=== PATIENT | male | born 1990 | race Caucasian/White ===

== ENCOUNTER 2019-01-15 11:41 | Inpatient (IN) | payer OTHER, MEDICAID ==
[~2019-01-15] VITALS: Ht 185.4 cm; Wt 92.7 kg
[2019-01-15] MEDS ORDERED: QUET100T PO (14:35)
[2019-01-15] MEDS ORDERED: DIVA500T52 PO (14:35)
[2019-01-15] MEDS ORDERED: AMLO5TAB9 PO (17:06)
[2019-01-15] MEDS ORDERED: HALOPERIDOL 5 MG TABLET PO PRN (17:30)
[2019-01-15] MEDS ORDERED: ZOLPIDEM TARTRATE 10 MG TABLET PO PRN (17:30)
[2019-01-15] MEDS ORDERED: LORazepam 2 MG TABLET PO PRN (17:30)
[2019-01-15 18:10] VITALS: BP 146/85
[2019-01-15] MEDS ORDERED: INFLUENZA VIRUS VACCINE QVS 2019-20 (3YR+)/PF 60 MCG/0.5 ML SYRINGE IM ONE (18:30)
[2019-01-15] MEDS ORDERED: PNEUMOCOCCAL VACCINE POLYVALENT 0.5 ML VIAL [PPSV23] IM ONE (18:30)
[2019-01-15] MEDS: QUEtiapine FUMARATE 100 MG TABLET PO SCH (21:25)
[2019-01-15] MEDS: AmLODIPine BESYLATE 5 MG TABLET PO SCH (21:25)
[2019-01-15 22:53] VITALS: BP 122/71
[2019-01-16 05:49] VITALS: BP 126/63
[2019-01-16] MEDS ORDERED: MAG HYDROX/AL HYDROX/SIMETH ES 30 ML SUSPENSION UDCUP PO PRN (08:00)
[2019-01-16] MEDS ORDERED: CloNIDine HCL 0.1 MG TABLET PO PRN (08:00)
[2019-01-16] MEDS ORDERED: MAGNESIUM HYDROXIDE SUSPENSION 30 ML UDCUP PO PRN (08:00)
[2019-01-16] MEDS ORDERED: DOCUSATE SODIUM 100 MG CAPSULE PO PRN (08:00)
[2019-01-16] MEDS ORDERED: PETROLATUM,WHITE 28 GM JELLY TP PRN (08:00)
[2019-01-16] MEDS ORDERED: ONDANSETRON HCL 4 MG TABLET PO PRN (08:00)
[2019-01-16] MEDS ORDERED: ACETAMINOPHEN 325 MG TABLET PO PRN (08:00)
[2019-01-16] MEDS ORDERED: IBUPROFEN 600 MG TABLET PO PRN (08:00)
[2019-01-16] MEDS ORDERED: BACITRACIN 28.4 GM OINTMENT TP PRN (08:00)
[2019-01-16] MEDS ORDERED: OMEPRAZOLE 20 MG CAPSULE PO PRN (08:00)
[2019-01-16] MEDS ORDERED: LOPERAMIDE HCL 2 MG CAPSULE PO PRN (08:00)
[2019-01-16] MEDS ORDERED: BENZOCAINE/MENTHOL LOZENGE MM PRN (08:00)
[2019-01-16] MEDS ORDERED: ALBUTEROL SULFATE HFA 90 MCG/PUFF 8 GM INHALER IH PRN (08:00)
[2019-01-16 08:15] VITALS: BP 170/108
[2019-01-16] MEDS: DIVALPROEX SODIUM 500 MG ER TABLET PO SCH (08:19)
[2019-01-16 08:46] LABS: BASOPHILS % (AUTO) 0.5 % (0.0-2.0); EOSINOPHILS % (AUTO) 2.5 % (1.0-6.0); HEMOGLOBIN 9.6 g/dL (13.5-17.5); LYMPHOCYTES # (AUTO) 0.5 K/uL (1.0-4.8); LYMPHOCYTES % (AUTO) 14.9 % (22.0-44.0); MEAN CORPUSCULAR HEMOGLOBIN 30.1 pg (26.0-34.0); MEAN CORPUSCULAR HGB CONC 33.2 G/dL (31.0-37.0); MEAN CORPUSCULAR VOLUME 91 fL (80-100); MONOCYTES # (AUTO) 0.4 K/uL (0.1-1.0); MONOCYTES % (AUTO) 10.2 % (2.0-9.0); NEUTROPHILS # (AUTO) 2.5 K/uL (1.8-7.7); NEUTROPHILS % (AUTO) 71.9 % (40.0-70.0); PLATELET COUNT (AUTO) 125 K/uL (150-450); RED CELL DISTRIBUTION WIDTH 14.9 % (11.5-14.5)
[2019-01-16] MEDS: AmLODIPine BESYLATE 5 MG TABLET PO SCH (09:08)
[2019-01-16 09:25] LABS: HEMOGLOBIN A1C 5.5 % (4.5-6.2)
[2019-01-16 09:48] LABS: ALBUMIN 4.1 g/dL (3.4-5.0); BILIRUBIN,TOTAL 0.2 mg/dL (0.1-1.0); CALCIUM, TOTAL 9.3 mg/dL (8.8-10.5); CHOL/HDL RATIO 2.9 (4.2-7.3); CREATININE 4.46 mg/dL (0.60-1.30); POTASSIUM 4.5 mmol/L (3.5-5.1); THYROID STIMULATING HORMONE 1.79 uIU/mL (0.36-3.74); TOTAL PROTEIN, SERUM 7.6 g/dL (6.4-8.2)
[2019-01-16 18:02] VITALS: BP 143/84
[2019-01-16] MEDS: QUEtiapine FUMARATE 100 MG TABLET PO SCH (21:14)
[2019-01-17 01:06] VITALS: BP 119/62
[2019-01-17 08:09] VITALS: BP 123/90
[2019-01-17] MEDS: DIVALPROEX SODIUM 500 MG ER TABLET PO SCH (08:40)
[2019-01-17] MEDS: AmLODIPine BESYLATE 5 MG TABLET PO SCH ×2 (08:41→12:01)
[2019-01-17] MEDS: QUEtiapine FUMARATE 100 MG TABLET PO SCH (20:50)
[2019-01-18 04:29] VITALS: BP 135/100
[2019-01-18 07:23] LABS: BASOPHILS % (AUTO) 0.7 % (0.0-2.0); EOSINOPHILS % (AUTO) 1.9 % (1.0-6.0); HEMATOCRIT 26.6 % (41-53); LYMPHOCYTES # (AUTO) 0.5 K/uL (1.0-4.8); LYMPHOCYTES % (AUTO) 9.7 % (22.0-44.0); MEAN CORPUSCULAR HEMOGLOBIN 30.6 pg (26.0-34.0); MEAN CORPUSCULAR HGB CONC 33.8 G/dL (31.0-37.0); MEAN CORPUSCULAR VOLUME 91 fL (80-100); MONOCYTES # (AUTO) 0.7 K/uL (0.1-1.0); MONOCYTES % (AUTO) 12.9 % (2.0-9.0); NEUTROPHILS # (AUTO) 3.8 K/uL (1.8-7.7); NEUTROPHILS % (AUTO) 74.8 % (40.0-70.0); PLATELET COUNT (AUTO) 131 K/uL (150-450); RED BLOOD CELL COUNT(AUTO) 2.94 MIL/uL (4.50-5.90); RED CELL DISTRIBUTION WIDTH 14.9 % (11.5-14.5)
[2019-01-18 07:45] LABS: BILIRUBIN,TOTAL 0.3 mg/dL (0.1-1.0); CREATININE 4.65 mg/dL (0.60-1.30); MAGNESIUM 2.3 mg/dL (1.80-2.40); POTASSIUM 4.9 mmol/L (3.5-5.1)
[2019-01-18 08:20] VITALS: BP 148/90
[2019-01-18] MEDS: DIVALPROEX SODIUM 500 MG ER TABLET PO SCH (08:23)
[2019-01-18] MEDS: AmLODIPine BESYLATE 5 MG TABLET PO SCH (08:23)
== END 2019-01-18 13:49 | disposition short-term general hospital (02) | DRG 885 ==
LOC: B2X 17:20
PROVIDERS: ADMIT Psychiatry & Neurology Psychiatry; ATTEND Psychiatry & Neurology Psychiatry
PROC: 3E0234Z Introduction of Serum, Toxoid and Vaccine into Muscle, Percutaneous Approach (ICD-10-PCS; principal; 2019-01-15)
DX: F25.9 Schizoaffective disorder, unspecified (principal); N17.9 Acute kidney failure, unspecified; F17.200 Nicotine dependence, unspecified, uncomplicated; F41.9 Anxiety disorder, unspecified; K59.00 Constipation, unspecified; Z79.899 Other long term (current) drug therapy; G47.00 Insomnia, unspecified; I10 Essential (primary) hypertension; D64.9 Anemia, unspecified; Z88.0 Allergy status to penicillin; Z88.5 Allergy status to narcotic agent; Z88.8 Allergy status to other drugs, medicaments and biological substances; Z23 Encounter for immunization
CPT/HCPCS: 83036; 83735; 84100; 84439; 84443; 87081

== ENCOUNTER 2019-01-18 15:27 | Inpatient (IN) | payer OTHER, MEDICAID ==
[~2019-01-18] VITALS: Ht 182.9 cm; Wt 95.0 kg
[~2019-01-18 15:27] MED LIST: AMLO5TAB9 PO; DIVA500T52 PO; QUET100T PO
[2019-01-18 18:04] VITALS: BP 180/105
[2019-01-18 19:00] VITALS: BP 146/84
[2019-01-18] MEDS ORDERED: ZOLPIDEM TARTRATE 10 MG TABLET PO PRN (19:15)
[2019-01-18] MEDS: QUEtiapine FUMARATE 100 MG TABLET PO SCH (19:48)
[2019-01-18] MEDS: HALOPERIDOL 5 MG TABLET PO PRN (19:48)
[2019-01-18] MEDS ORDERED: INFLUENZA VIRUS VACCINE QVS 2019-20 (3YR+)/PF 60 MCG/0.5 ML SYRINGE IM ONE (20:15)
[2019-01-19] MEDS: AmLODIPine BESYLATE 5 MG TABLET PO SCH (08:00)
[2019-01-19] MEDS: DIVALPROEX SODIUM 500 MG ER TABLET PO SCH (08:00)
[2019-01-19] MEDS: LORazepam 2 MG TABLET PO PRN (08:28)
[2019-01-19] MEDS ORDERED: IBUPROFEN 600 MG TABLET PO PRN (08:45)
[2019-01-19] MEDS ORDERED: OMEPRAZOLE 20 MG CAPSULE PO PRN (08:45)
[2019-01-19] MEDS ORDERED: LOPERAMIDE HCL 2 MG CAPSULE PO PRN (08:45)
[2019-01-19] MEDS ORDERED: ACETAMINOPHEN 325 MG TABLET PO PRN (08:45)
[2019-01-19] MEDS ORDERED: CloNIDine HCL 0.1 MG TABLET PO PRN (08:45)
[2019-01-19] MEDS ORDERED: ALBUTEROL SULFATE HFA 90 MCG/PUFF 8 GM INHALER IH PRN (08:45)
[2019-01-19] MEDS ORDERED: BACITRACIN 28.4 GM OINTMENT TP PRN (08:45)
[2019-01-19] MEDS ORDERED: ONDANSETRON HCL 4 MG TABLET PO PRN (08:45)
[2019-01-19] MEDS ORDERED: DOCUSATE SODIUM 100 MG CAPSULE PO PRN (08:45)
[2019-01-19] MEDS ORDERED: BENZOCAINE/MENTHOL LOZENGE MM PRN (08:45)
[2019-01-19] MEDS ORDERED: PETROLATUM,WHITE 28 GM JELLY TP PRN (08:45)
[2019-01-19] MEDS ORDERED: MAG HYDROX/AL HYDROX/SIMETH ES 30 ML SUSPENSION UDCUP PO PRN (08:45)
[2019-01-19] MEDS ORDERED: MAGNESIUM HYDROXIDE SUSPENSION 30 ML UDCUP PO PRN (08:45)
[2019-01-19] MEDS: HALOPERIDOL 5 MG TABLET PO PRN (08:56)
[2019-01-19 10:43] LABS: BASOPHILS % (AUTO) 0.8 % (0.0-2.0); EOSINOPHILS % (AUTO) 2.3 % (1.0-6.0); HEMATOCRIT 26.9 % (41-53); LYMPHOCYTES # (AUTO) 0.5 K/uL (1.0-4.8); LYMPHOCYTES % (AUTO) 14.8 % (22.0-44.0); MEAN CORPUSCULAR HEMOGLOBIN 30.3 pg (26.0-34.0); MEAN CORPUSCULAR HGB CONC 33.4 G/dL (31.0-37.0); MEAN CORPUSCULAR VOLUME 91 fL (80-100); MONOCYTES # (AUTO) 0.4 K/uL (0.1-1.0); MONOCYTES % (AUTO) 11.5 % (2.0-9.0); NEUTROPHILS # (AUTO) 2.4 K/uL (1.8-7.7); NEUTROPHILS % (AUTO) 70.6 % (40.0-70.0); PLATELET COUNT (AUTO) 137 K/uL (150-450); RED BLOOD CELL COUNT(AUTO) 2.96 MIL/uL (4.50-5.90); RED CELL DISTRIBUTION WIDTH 14.9 % (11.5-14.5)
[2019-01-19 11:04] LABS: CREATININE 4.48 mg/dL (0.60-1.30); POTASSIUM 5.4 mmol/L (3.5-5.1)
[2019-01-19 11:15] LABS: BILIRUBIN,TOTAL 0.2 mg/dL (0.1-1.0); TOTAL PROTEIN, SERUM 7.6 g/dL (6.4-8.2)
[2019-01-19 11:55] VITALS: BP 132/81
[2019-01-19] MEDS ORDERED: SODIUM POLYSTYRENE SULFONATE 15 GM/60 ML SUSPENSION BOTTLE PO ONE (12:15)
[2019-01-19 16:36] VITALS: BP 142/99
[2019-01-19 19:19] LABS: APPEARANCE,URINE CLEAR (CLEAR); BILIRUBIN,URINE NEGATIVE (NEGATIVE); GLUCOSE, URINE (UA) NEGATIVE (NEGATIVE); KETONES,URINE NEGATIVE (NEGATIVE); LEUKOCYTE ESTERASE ,URINE NEGATIVE (NEGATIVE); NITRATE,URINE NEGATIVE (NEGATIVE); OCCULT BLOOD,URINE NEGATIVE (NEGATIVE); PROTEIN,URINE NEGATIVE (NEGATIVE); UROBILINOGEN,URINE 0.2 mg/dL (<=1.0)
[2019-01-19 19:20] LABS: CREATININE,URINE RANDOM 40.8 mg/dL (30.0-125.0); SODIUM,URINE RANDOM 50 mmol/l (20-110); UREA NITROGEN,URINE RANDOM 403 mg/dL (350-1000)
[2019-01-19 19:51] LABS: BACTERIA,URINE None Seen /HPF (None Seen); RBC,URINE None Seen /HPF (0-2); SQUAMOUS EPITHELIAL CELL,UR Rare /LPF (None Seen); WBC,URINE None Seen /HPF (0-5)
[2019-01-19] MEDS: QUEtiapine FUMARATE 100 MG TABLET PO SCH (20:04)
[2019-01-20 05:25] VITALS: BP 151/88
[2019-01-20] MEDS: HALOPERIDOL 5 MG TABLET PO PRN (07:38)
[2019-01-20] MEDS: AmLODIPine BESYLATE 5 MG TABLET PO SCH (07:38)
[2019-01-20] MEDS: LORazepam 2 MG TABLET PO PRN ×2 (07:38→17:55)
[2019-01-20] MEDS: DIVALPROEX SODIUM 500 MG ER TABLET PO SCH (07:38)
[2019-01-20 09:29] VITALS: BP 134/88
[2019-01-20 17:19] VITALS: BP 139/79
[2019-01-20] MEDS: QUEtiapine FUMARATE 100 MG TABLET PO SCH (20:24)
[2019-01-21] MEDS: LORazepam 2 MG TABLET PO PRN ×3 (02:32→15:25)
[2019-01-21 02:33] VITALS: BP 150/89
[2019-01-21] MEDS: DIVALPROEX SODIUM 500 MG ER TABLET PO SCH (07:46)
[2019-01-21] MEDS: AmLODIPine BESYLATE 5 MG TABLET PO SCH (07:47)
[2019-01-21] MEDS: HALOPERIDOL 5 MG TABLET PO PRN ×2 (07:47→15:25)
[2019-01-21 07:53] LABS: HEMOGLOBIN A1C 5.1 % (4.5-6.2)
[2019-01-21 08:00] VITALS: BP 144/108
[2019-01-21 08:14] LABS: CALCIUM, TOTAL 8.9 mg/dL (8.8-10.5); CREATININE 4.38 mg/dL (0.60-1.30); MAGNESIUM 2.3 mg/dL (1.80-2.40); PHOSPHORUS 4.9 mg/dL (2.5-4.9); POTASSIUM 4.9 mmol/L (3.5-5.1)
[2019-01-21 16:16] VITALS: BP 138/78
[2019-01-21] MEDS: QUEtiapine FUMARATE 100 MG TABLET PO SCH (20:10)
[2019-01-22] MEDS: LORazepam 2 MG TABLET PO PRN ×2 (00:02→08:03)
[2019-01-22] MEDS: HALOPERIDOL 5 MG TABLET PO PRN (00:03)
[2019-01-22] MEDS: DIVALPROEX SODIUM 500 MG ER TABLET PO SCH (08:03)
[2019-01-22] MEDS: AmLODIPine BESYLATE 5 MG TABLET PO SCH (08:03)
[2019-01-22 08:17] VITALS: BP 152/94
[2019-01-22 17:18] VITALS: BP 144/78
[2019-01-22] MEDS: QUEtiapine FUMARATE 100 MG TABLET PO SCH (20:24)
[2019-01-23 08:00] VITALS: BP 158/104
[2019-01-23] MEDS: AmLODIPine BESYLATE 5 MG TABLET PO SCH (09:36)
[2019-01-23] MEDS: DIVALPROEX SODIUM 500 MG ER TABLET PO SCH (09:36)
[2019-01-23 19:10] VITALS: BP 138/76
[2019-01-23] MEDS ORDERED: VALPROIC ACID 250 MG/5 ML SYRUP UDCUP PO SCH (21:00)
[2019-01-23] MEDS: VALPROIC ACID 250 MG/5 ML SYRUP UDCUP PO SCH (21:11)
[2019-01-23] MEDS: QUEtiapine FUMARATE 100 MG TABLET PO SCH (21:11)
[2019-01-24] MEDS: LORazepam 2 MG TABLET PO PRN ×2 (04:41→12:55)
[2019-01-24] MEDS: HALOPERIDOL 5 MG TABLET PO PRN ×2 (04:41→12:55)
[2019-01-24 04:42] VITALS: BP 148/83
[2019-01-24 08:09] LABS: CALCIUM, TOTAL 8.8 mg/dL (8.8-10.5); CREATININE 4.46 mg/dL (0.60-1.30); MAGNESIUM 2.2 mg/dL (1.80-2.40); PHOSPHORUS 4.6 mg/dL (2.5-4.9); POTASSIUM 4.8 mmol/L (3.5-5.1)
[2019-01-24] MEDS: AmLODIPine BESYLATE 5 MG TABLET PO SCH (09:00)
[2019-01-24 10:23] VITALS: BP 149/98
[2019-01-24 17:48] VITALS: BP 104/72
[2019-01-24] MEDS: QUEtiapine FUMARATE 100 MG TABLET PO SCH (20:52)
[2019-01-24] MEDS: VALPROIC ACID 250 MG/5 ML SYRUP UDCUP PO SCH (20:52)
[2019-01-25] MEDS: LORazepam 2 MG TABLET PO PRN (08:08)
[2019-01-25] MEDS: HALOPERIDOL 5 MG TABLET PO PRN (08:08)
[2019-01-25] MEDS: AmLODIPine BESYLATE 5 MG TABLET PO SCH (08:08)
[2019-01-25] MEDS ORDERED: HALOPERIDOL LACTATE 5 MG/ML VIAL ONE (15:52)
[2019-01-25] MEDS ORDERED: LORazepam 2 MG/ML VIAL ONE (15:52)
[2019-01-25] MEDS ORDERED: DiphenhydrAMINE HCL 50 MG/ML VIAL ONE (15:52)
[2019-01-25] MEDS ORDERED: LORazepam 2 MG/ML VIAL IM ONE (16:00)
[2019-01-25] MEDS ORDERED: DiphenhydrAMINE HCL 50 MG/ML VIAL IM ONE (16:00)
[2019-01-25] MEDS ORDERED: HALOPERIDOL LACTATE 5 MG/ML VIAL IM ONE (16:00)
[2019-01-25] MEDS: QUEtiapine FUMARATE 100 MG TABLET PO SCH (21:00)
[2019-01-25] MEDS: VALPROIC ACID 250 MG/5 ML SYRUP UDCUP PO SCH (21:00)
[2019-01-26] MEDS: AmLODIPine BESYLATE 5 MG TABLET PO SCH (09:10)
[2019-01-26] MEDS: LORazepam 2 MG TABLET PO PRN (09:10)
[2019-01-26 10:06] VITALS: BP 136/93
[2019-01-26 16:36] VITALS: BP 137/96
[2019-01-26] MEDS: QUEtiapine FUMARATE 100 MG TABLET PO SCH (21:13)
[2019-01-26] MEDS: VALPROIC ACID 250 MG/5 ML SYRUP UDCUP PO SCH (21:14)
[2019-01-27] MEDS: LORazepam 2 MG TABLET PO PRN (03:46)
[2019-01-27] MEDS: HALOPERIDOL 5 MG TABLET PO PRN (03:48)
[2019-01-27] MEDS: AmLODIPine BESYLATE 5 MG TABLET PO SCH (09:13)
[2019-01-27 10:26] VITALS: BP 157/93
[2019-01-27 19:06] VITALS: BP 146/80
[2019-01-27] MEDS ORDERED: NICOTINE 14 MG/24 HOUR PATCH TD ONE (19:30)
[2019-01-27] MEDS: VALPROIC ACID 250 MG/5 ML SYRUP UDCUP PO SCH (20:15)
[2019-01-27] MEDS: QUEtiapine FUMARATE 100 MG TABLET PO SCH (20:15)
[2019-01-27 20:21] VITALS: BP 146/86
[2019-01-27] MEDS: LABETALOL HCL 100 MG TABLET PO SCH (20:22)
[2019-01-28] MEDS: LABETALOL HCL 100 MG TABLET PO SCH (08:22)
[2019-01-28] MEDS: AmLODIPine BESYLATE 5 MG TABLET PO SCH (08:23)
[2019-01-28] MEDS ORDERED: NICOTINE 14 MG/24 HOUR PATCH TD SCH (09:00)
[2019-01-28 09:48] VITALS: BP 144/85
[2019-01-28] MEDS ORDERED: LABETALOL HCL 100 MG TABLET PO SCH (17:00)
[2019-01-28] MEDS: QUEtiapine FUMARATE 100 MG TABLET PO SCH (19:55)
[2019-01-28] MEDS: VALPROIC ACID 250 MG/5 ML SYRUP UDCUP PO SCH (19:55)
[2019-01-28 21:26] VITALS: BP 139/78
[2019-01-29 08:30] VITALS: BP 154/87
[2019-01-29] MEDS: LABETALOL HCL 200 MG TABLET PO SCH ×2 (09:59→16:58)
[2019-01-29] MEDS: AmLODIPine BESYLATE 5 MG TABLET PO SCH (10:02)
[2019-01-29] MEDS: HALOPERIDOL 5 MG TABLET PO PRN (11:04)
[2019-01-29 16:10] VITALS: BP 146/76
[2019-01-29] MEDS: QUEtiapine FUMARATE 100 MG TABLET PO SCH (21:00)
[2019-01-29] MEDS: VALPROIC ACID 250 MG/5 ML SYRUP UDCUP PO SCH (21:01)
[2019-01-30] MEDS: HALOPERIDOL 5 MG TABLET PO PRN ×3 (08:05→20:59)
[2019-01-30] MEDS: LABETALOL HCL 200 MG TABLET PO SCH ×2 (08:05→16:19)
[2019-01-30] MEDS: AmLODIPine BESYLATE 5 MG TABLET PO SCH (08:05)
[2019-01-30 08:54] VITALS: BP 152/82
[2019-01-30 18:50] VITALS: BP 143/81
[2019-01-30] MEDS: QUEtiapine FUMARATE 100 MG TABLET PO SCH (20:08)
[2019-01-30] MEDS: VALPROIC ACID 250 MG/5 ML SYRUP UDCUP PO SCH (20:09)
[2019-01-31 08:20] VITALS: BP 14/64
[2019-01-31] MEDS: HALOPERIDOL 5 MG TABLET PO PRN (08:26)
[2019-01-31] MEDS: AmLODIPine BESYLATE 5 MG TABLET PO SCH (08:26)
[2019-01-31] MEDS: LABETALOL HCL 200 MG TABLET PO SCH ×2 (08:27→17:07)
[2019-01-31 17:07] VITALS: BP 134/82
[2019-01-31] MEDS: QUEtiapine FUMARATE 100 MG TABLET PO SCH (20:36)
[2019-01-31] MEDS: VALPROIC ACID 250 MG/5 ML SYRUP UDCUP PO SCH (20:37)
[2019-02-01] MEDS: HALOPERIDOL 5 MG TABLET PO PRN ×2 (05:02→16:35)
[2019-02-01 10:00] VITALS: BP 143/84
[2019-02-01] MEDS: AmLODIPine BESYLATE 5 MG TABLET PO SCH (10:38)
[2019-02-01] MEDS: LABETALOL HCL 200 MG TABLET PO SCH ×2 (10:38→16:35)
[2019-02-01 16:35] VITALS: BP 131/92
[2019-02-01] MEDS ORDERED: LORazepam 2 MG/ML VIAL IM ONE (18:30)
[2019-02-01] MEDS ORDERED: HALOPERIDOL LACTATE 5 MG/ML VIAL IM ONE (18:30)
[2019-02-01] MEDS ORDERED: DiphenhydrAMINE HCL 50 MG/ML VIAL IM ONE (18:30)
[2019-02-01] MEDS: QUEtiapine FUMARATE 100 MG TABLET PO SCH (20:43)
[2019-02-01] MEDS: VALPROIC ACID 250 MG/5 ML SYRUP UDCUP PO SCH (20:43)
[2019-02-02] MEDS: LABETALOL HCL 200 MG TABLET PO SCH ×2 (08:45→15:56)
[2019-02-02] MEDS: HALOPERIDOL 5 MG TABLET PO PRN ×3 (08:47→20:17)
[2019-02-02] MEDS: AmLODIPine BESYLATE 5 MG TABLET PO SCH (08:47)
[2019-02-02 09:48] VITALS: BP 132/83
[2019-02-02 16:55] VITALS: BP 131/71
[2019-02-02] MEDS: QUEtiapine FUMARATE 100 MG TABLET PO SCH (20:17)
[2019-02-02] MEDS: VALPROIC ACID 250 MG/5 ML SYRUP UDCUP PO SCH (20:18)
[2019-02-03 08:10] VITALS: BP 141/82
[2019-02-03] MEDS: LABETALOL HCL 200 MG TABLET PO SCH ×2 (09:10→16:23)
[2019-02-03] MEDS: AmLODIPine BESYLATE 5 MG TABLET PO SCH (09:10)
[2019-02-03] MEDS: HALOPERIDOL 5 MG TABLET PO PRN (09:10)
[2019-02-03 19:04] VITALS: BP 135/82
[2019-02-03] MEDS: QUEtiapine FUMARATE 100 MG TABLET PO SCH (20:08)
[2019-02-03] MEDS: VALPROIC ACID 250 MG/5 ML SYRUP UDCUP PO SCH (20:08)
[2019-02-04] MEDS: HALOPERIDOL 5 MG TABLET PO PRN (09:03)
[2019-02-04] MEDS: LABETALOL HCL 200 MG TABLET PO SCH ×2 (09:03→17:31)
[2019-02-04] MEDS: AmLODIPine BESYLATE 5 MG TABLET PO SCH (09:03)
[2019-02-04 11:07] VITALS: BP 138/84
[2019-02-04 16:13] VITALS: BP 137/78
[2019-02-04] MEDS: VALPROIC ACID 250 MG/5 ML SYRUP UDCUP PO SCH (20:07)
[2019-02-04] MEDS: QUEtiapine FUMARATE 100 MG TABLET PO SCH (20:07)
[2019-02-05] MEDS ORDERED: LABE200T6 PO (08:22)
[2019-02-05] MEDS: LABETALOL HCL 200 MG TABLET PO SCH (08:47)
[2019-02-05] MEDS: AmLODIPine BESYLATE 5 MG TABLET PO SCH (08:47)
[2019-02-05 09:03] VITALS: BP 155/91
== END 2019-02-05 08:50 | disposition home or self-care (01) | DRG 885 ==
LOC: 6N 15:27 → 3EC 16:45 → UNDODISIN 01-19 15:00
PROVIDERS: ADMIT Psychiatry & Neurology Psychiatry; ATTEND Psychiatry & Neurology Psychiatry
DX: F20.0 Paranoid schizophrenia (principal); N18.9 Chronic kidney disease, unspecified; N17.9 Acute kidney failure, unspecified; D64.9 Anemia, unspecified; E11.22 Type 2 diabetes mellitus with diabetic chronic kidney disease; E87.5 Hyperkalemia; F19.10 Other psychoactive substance abuse, uncomplicated; F10.10 Alcohol abuse, uncomplicated; G47.00 Insomnia, unspecified; I12.9 Hypertensive chronic kidney disease with stage 1 through stage 4 chronic kidney disease, or unspecified chronic kidney disease; K59.00 Constipation, unspecified; Z79.899 Other long term (current) drug therapy; Z28.21 Immunization not carried out because of patient refusal; Z88.0 Allergy status to penicillin; Z88.5 Allergy status to narcotic agent
CPT/HCPCS: 76770; 82570; 83036; 83735; 84100; 84300; 84540; 87081; J1200; J1630; J2060